=== PATIENT | male | born 1965 | race African-American/Black ===

== ENCOUNTER 2018-12-18 10:46 | Day surgery (SDC) | payer OTHER ==
[~2018-12-18] VITALS: Ht 182.9 cm; Wt 89.4 kg
[2018-12-18] VITALS (11 sets, daily range): BP systolic 137–178; BP diastolic 97–118
[~2018-12-18 10:46] MED LIST: ceFAZolin 1gm IVPB IVPB ONE; celeBREX 200mg Cap **SURGERY PATIENTS ONLY ORAL ONE; oxyCONTIN 20mg tab ORAL ONE
[2018-12-18] MEDS ORDERED: NKM (11:28)
[2018-12-18] MEDS ORDERED: oxyCONTIN 20mg tab ORAL ONE (11:43)
[2018-12-18] MEDS ORDERED: celeBREX 200mg Cap **SURGERY PATIENTS ONLY ORAL ONE (11:43)
[2018-12-18] MEDS ORDERED: Sodium Chloride 10ml vial INJ ONE (12:01)
[2018-12-18] MEDS ORDERED: Propofol 200mg/20ml IV ONE (12:01)
[2018-12-18] MEDS ORDERED: Dexamethasone 4mg/ml vial ONE (12:01)
[2018-12-18] MEDS ORDERED: Lidocaine 1% MPF 10mg/ml 5ml ONE (12:01)
[2018-12-18] MEDS ORDERED: Ropivacaine 5mg/ml Vial 30ml INJ ONE (12:01)
--- NOTE | 2018-12-18 12:01 | Anethesia Preoperative Eval ---
Anesthesia Pre-op PMH/ROS General Date of Evaluation: December 18, 2018 Anesthesiologist: Nga ASA Score: ASA 2 Mallampati Score Class I : Soft palate, uvula, fauces, pillars visible Class II: Soft palate, uvula, fauces visible Class III: Soft palate, base of uvula visible Class IV: Only hard plate visible Mallampati Classification: Class II Surgeon: Chase Diagnosis: R Shoulder Pain Surgical Procedure: R Shoulder Arthroscopy Anesthesia History: none Family History: no anesthesia problems Allergies: Coded Allergies: No Known Allergies (Unverified , 12/18/18) Medications: see eMAR Patient NPO?: Yes Past Medical History Cardiovascular: Reports: HTN Neurologic/Psychiatric: Reports: depression/anxiety, other - Head Trauma Anesthesia Pre-op Phys. Exam Physician Exam Last Vital Signs Date Time Temp Pulse Resp B/P (MAP) Pulse Ox O2 Delivery O2 Flow Rate FiO2 12/18/18 11:49 Room Air 12/18/18 11:47 97.5 84 20 148/106 100 Constitutional: NAD Neurologic: CN 2-12 intact Cardiovascular: RRR Respiratory: CTA Gastrointestinal: S/NT/ND Airway Exam Mallampati Score: Class II MO: full ROM: full Teeth: missing, intact Anesthesia Pre-op A/P Risk Assessment & Plan Assessment: ASA 2 Plan: GA, SED, GlideScope Go Status Change Before Surgery: No Pre-Antibiotics Dru Grams Ancef IV Given Within 1 Hr of Incision: Yes Surjit Sylvester MD December 18, 2018 12:01
[2018-12-18] MEDS ORDERED: LR 1000ml 1,000 ML IVLG SCH (12:08)
[2018-12-18] MEDS ORDERED: Meperidine 50mg/ml Inj(FOR RIGORS ONLY) IVP PRN (12:15)
[2018-12-18] MEDS ORDERED: LORazepam Inj 2mg/ml 1ml IV PRN (12:15)
[2018-12-18] MEDS ORDERED: Metoclopramide 10mg/2ml Inj IVP PRN (12:15)
[2018-12-18] MEDS ORDERED: HYDROcodone/Acetamin 5/325 tab ORAL PRN ×2 (12:15→16:00)
[2018-12-18] MEDS ORDERED: Hydromorphone 0.5mg/0.5ml inj IVP PRN (12:15)
[2018-12-18] MEDS ORDERED: DiphenhydrAMINE 50mg/ml Inj IVP PRN (12:15)
[2018-12-18] MEDS ORDERED: Ketorolac 30mg Inj IV PRN ×2 (12:15)
[2018-12-18] MEDS ORDERED: fentaNYL 100 mcg/2 mL IV PRN (12:15)
[2018-12-18] MEDS ORDERED: Midazolam 2mg/2ml Inj IVP PRN (12:15)
[2018-12-18] MEDS ORDERED: Atropine Sulfate 0.4mg/ml inj IVP PRN (12:15)
[2018-12-18] MEDS ORDERED: oxyCODONE HCL/Acetaminophen 5/325mg ORAL PRN (12:15)
[2018-12-18] MEDS ORDERED: HYDROcodone/Acetamin 7.5/325 tab ORAL PRN (12:15)
[2018-12-18] MEDS ORDERED: Labetalol 5mg/ml 20ml vial IV PRN (12:15)
--- NOTE | 2018-12-18 12:19 | Immediate Post-Op Evaluation ---
Immediate Post-Op Evalulation Immediate Post-Op Evalulation Procedure: R Shoulder Arthroscopy Date of Evaluation: December 18, 2018 Time of Evaluation: 14:39 IV Fluids: 800 LR Blood Products: 0 Estimated Blood Loss: 10 Urinary Output: 0 Blood Pressure Systolic: 148 Blood Pressure Diastolic: 99 Pulse Rate: 76 Respiratory Rate: 16 O2 Sat by Pulse Oximetry: 100 Temperature (Fahrenheit): 97.3 Pain Score (1-10): 2 Nausea: No Vomiting: No Complications 0 Patient Status: awake, reacts, patent, none Hydration Status: adequate Dru Grams Ancef IV Given Within 1 Hr of Incision: Yes Time Given: 13:16 Surjit Sylvester MD December 18, 2018 12:19
--- NOTE | 2018-12-18 12:20 | 48 Hour Post Anesthesia Eval ---
Post Anesthesia Evaluation Procedure: R Shoulder Arthroscopy Date of Evaluation: December 18, 2018 Time of Evaluation: 16:47 Blood Pressure Systolic: 143 0: 96 Pulse Rate: 70 Respiratory Rate: 18 Temperature (Fahrenheit): 97.3 O2 Sat by Pulse Oximetry: 100 Airway: patent Nausea: No Vomiting: No Pain Intensity: 2 Hydration Status: adequate Cardiopulmonary Status: Stable Mental Status/LOC: patient returned to baseline Follow-up Care/Observations: 0 Post-Anesthesia Complications: 0 Follow-up care needed: ready to discharge Surjit Sylvester MD December 18, 2018 12:20
[2018-12-18] MEDS ORDERED: Bupivacaine w/Epi 0.25% 30ml Vial INJ ONE (12:53)
[2018-12-18] MEDS ORDERED: EPINEPHrine 1mg/1ml Amp ONE (12:53)
[2018-12-18] MEDS ORDERED: NS Irrig 4000ml IRRIG ONE ×2 (13:18→13:55)
[2018-12-18] MEDS ORDERED: Duramorph PF 5mg/10ml amp ONE (14:26)
[2018-12-18] MEDS ORDERED: Ketorolac 30mg Inj ONE (14:26)
[2018-12-18] MEDS ORDERED: Kenalog-40 1ml Vial ONE (14:26)
--- NOTE | 2018-12-18 15:54 | Pre-Procedure Note/Attestation ---
Pre-Procedure Note/Attestation Complete Prior to Procedure Planned Procedure: right Procedure Narrative: shoulder arthroscopy, possible slap repair, sad Indications for Procedure Pre-Operative Diagnosis: right shoulder slap tear/ impingment Attestation I attest that I discussed the nature of the procedure; its benefits; risks and complications; and alternatives (and the risks and benefits of such alternatives ), prior to the procedure, with the patient (or the patient's legal employer relations representative). I attest that, if there was a reasonable possibility of needing a blood transfusion, the patient (or the patient's legal employer relations representative) was given the [facility] standardized written summary, pursuant to the [place] Marcin Blood Safety Act ([place] Health and Safety Code # 1645, as amended). I attest that I re-evaluated the patient just prior to the surgery and that there has been no change in the patient's H&P, except as documented below: Gilbert Stone MD December 18, 2018 15:54
--- NOTE | 2018-12-18 15:55 | Operative Note - PDOC ---
Operative Note Operative Note Pre-op Diagnosis: right shoulder slap tear/ impingment Procedure: see op report Post-op Diagnosis: same as pre-op plus Operative Findings: consistent w/pre-op dx studies Anesthesia: regional Specimen: none Complications: none Condition: stable Estimated Blood Loss: none Implant(s) used?: No Gilbert Stone MD December 18, 2018 15:54
[2018-12-18] MEDS ORDERED: Tylenol #3 tab (300mg/30mg) ORAL PRN (16:00)
[2018-12-18] MEDS ORDERED: HYDROmorphone 1mg/ml Carpuject SUBQ PRN (16:00)
[2018-12-18] MEDS ORDERED: D5 1/2NS 1,000 ML IV SCH (16:00)
--- NOTE | 2018-12-18 20:45 | Operative Note - Dictated ---
DATE OF OPERATION: 12/18/2018 PREOPERATIVE DIAGNOSES: 1. Right shoulder SLAP tear. 2. Right shoulder partial rotator cuff tear. 3. Right shoulder impingement syndrome. POSTOPERATIVE DIAGNOSES: 1. Right shoulder SLAP tear. 2. Right shoulder partial rotator cuff tear. 3. Right shoulder impingement syndrome. PROCEDURES: 1. Right shoulder arthroscopy with extensive intraarticular debridement. 2. Right shoulder subacromial decompression, bursectomy, release of CA ligament. SURGEON: Gilbert Stone M.D. ANESTHESIA: Interscalene with general. INDICATION FOR PROCEDURE: The patient is a pleasant gentleman, who has had continued right shoulder pain. He had MRI, which showed some concern for superior labral tear along with clinical evidence of impingement. He failed conservative treatment. He elected to undergo right shoulder arthroscopy, possible SLAP repair versus debridement with concurrence of decompression bursectomy. Risks, limitations, expectations, and complications of procedure were discussed in detail. All questions addressed. DESCRIPTION OF PROCEDURE: After informed consent was obtained, the patient was brought to the operating room. The patient was placed under general anesthesia and interscalene block. The patient then carefully placed in beach chair position. Right shoulder was prepped and draped in a sterile manner. Time-out was performed. Inferolateral stab incision was then made. Trocar was introduced into the glenohumeral joint. The anterior labrum was intact. There was some fraying of the superior labrum. The subscapularis was intact. Biceps tendon was intact. There was a tear of the articular side of the supraspinatus. Shaver was then placed through the rotator interval. Debridement of the superior labrum along with a partial rotator cuff tear was performed. Once that was done, the camera was repositioned in the subacromial space. The undersurface of acromion was identified. Acromioplasty was started from lateral to medial and completed from posterior to anterior. Once that was done, the bursectomy was completed. The instruments were removed. Portal sites were closed with 3-0 Monocryl sutures. Steri-Strips and a sterile dressing were applied. The patient was awoken and taken to recovery room with stable vital signs. ESTIMATED BLOOD LOSS: None. COMPLICATIONS: None. SPECIMENS: None. IMPLANTS: None. Gilbert Stone M.D. DR: DOT JOB#: [id number] CC:
== END 2018-12-18 18:00 | disposition home or self-care (01) ==
LOC: SUR 10:46
DX: M75.41 Impingement syndrome of right shoulder (principal); M75.111 Incomplete rotator cuff tear or rupture of right shoulder, not specified as traumatic; S43.401A Unspecified sprain of right shoulder joint, initial encounter; X58.XXXA Exposure to other specified factors, initial encounter; Y92.9 Unspecified place or not applicable; I10 Essential (primary) hypertension; F32.9 Major depressive disorder, single episode, unspecified; F41.9 Anxiety disorder, unspecified
CPT/HCPCS: 29823; J0171; J0690; J1100; J1885; J2250; J2405; J2704; J2795; J3301; 94003; 94150